=== PATIENT | female | born 1965 | race Caucasian/White ===

== ENCOUNTER 2019-03-11 11:49 | Emergency (ER) | payer BC, OTHER ==
[~2019-03-11] VITALS: Ht 177.8 cm; Wt 75.0 kg
[~2019-03-11 11:49] MED LIST: CEPH-443 PO
[2019-03-11 11:54] VITALS: BP 147/79; PULSE 88; RESP 18; Ht 177.8 cm; Wt 75.0 kg
== END 2019-03-11 15:14 | disposition home or self-care (01) ==
LOC: FTE 11:49
DX: R30.0 Dysuria (principal); I10 Essential (primary) hypertension
CPT/HCPCS: 81001; Z7502; 81003; 99283